=== PATIENT | female | born 1990 | race Caucasian/White ===

== ENCOUNTER 2016-12-26 16:35 | Emergency (ER) ==
[2016-12-26 16:45] VITALS: BP 129/88; TEMP 98.5; BMI 38.7
--- NOTE | 2016-12-26 17:17 | ED.PDOC ---
General ED Provider: Dr. TABATHA PIERSON JR Chief Complaint: Non-specific Complaint Stated Complaint: patient states it started with pain to left side of her face. states if she pushes on her cheek it helps the pain. patient states also has a headache. swelling noted to left side of face. states hurts left temporal area and down into teeth. [ End ]patient states left side of face and head are hurting. swelling noted. states if she bends over the pain worsens. states she did vomit x1 due to the pain earlier. states eyes also hurt when she bends over. states if she holds pressure to left side of face it feels better. states she thinks she may have a sinus infection but not drainage or congestion noted. 98.5 69 20 98 129/88 9/10. excedrin and tylenol sinus and headache and vistaril. lumpectomy left breast--benign. [ End ]. last month on the . left side of face and head hurting. [ End ] Time Seen by Physician: 17:17 Mode of Arrival: Walk-In Information Source: Patient Exam Limitations: No limitations Primary Care Provider: BETH RAY Nursing and Triage Documentation Reviewed and Agree: No Review of Systems - Review Of Systems Constitutional: Reports: No symptoms Eyes: Reports: No symptoms Ears, Nose, Mouth, Throat: Reports: Mouth pain (LEFT FACIAL PAIN) Respiratory: Reports: No symptoms Cardiac: Reports: No symptoms GI: Reports: No symptoms : Reports: No symptoms Musculoskeletal: Reports: No symptoms Skin: Reports: No symptoms Neurological: Reports: No symptoms Endocrine: Reports: No symptoms Hematologic/Lymphatic: Reports: No symptoms All Other Systems: Other Past Medical History - Past Medical History Previously Healthy: Yes Endocrine: Reports: None Cardiovascular: Reports: None Respiratory: Reports: None Hematological: Reports: None Gastrointestinal: Reports: None Genitourinary: Reports: None Neuro/Psych: Reports: Anxiety Musculoskeletal: Reports: None Cancer: Reports: None Last Menstrual Period: last month on the - Surgical History General Surgical History: Reports: Other (lumpectomy left breast--benign) - Family History Family History: Reports: Cancer (FEMALE RELATIVES WITH BREAST CANCER) - Social History Smoking Status: Current some day smoker Hx Substance Use: No Alcohol Screening: Occasionally Physical Exam - Physical Exam Appearance: Well-appearing Pain Distress: Moderate Eyes: JG, EOMI, Conjunctiva clear ENT: Ears normal, Nose normal, Oropharynx normal Neck: Supple (LEFT lad SLIGHTLY TENDER TENDER LEFT MAXILLARY SINUS) Respiratory: Airway patent, Breath sounds clear, Breath sounds equal, Respirations nonlabored Skin: Warm, Dry, Normal color Neurological: Sensation intact, Motor intact Psychiatric: Affect appropriate Critical Care Note - Critical Care Note Total Time (mins): 0 Course - Course Vital Signs: Temp Pulse Resp BP Pulse Ox 12/26/16 16:40 98.5 F 69 20 129/88 98 Departure - Departure Time of Disposition: 17:37 Disposition: HOME SELF-CARE Discharge Problem: Sinusitis, acute, maxillary Qualifiers: Recurrence: non-recurrent Qualifier Code: (J01.00) Acute maxillary sinusitis, unspecified Instructions: Sinusitis (ED) Condition: Good Pt referred to PMD for follow-up: Yes Additional Instructions: BACTRIM ANTIBIOTIC FOR INFECTION ANTIHISTAMINE EVERY DAY FOR ONE WEEK THEN NEEDED MAY ADD A DECONGESTANT- PSEUDOEPHEDRINE IS EFFECTIVE IBUPROFEN OR ALEVE FOR PAIN NOT IMPROVED WITH [id number] FOUR TIMES A DAY Prescriptions: Sulfamethoxazole/Trimethoprim [Bactrim Ds Tablet] 1 tab PO Q12HR #20 tablet Allergies/Adverse Reactions: Allergies Penicillins Allergy (Unknown, Unverified 12/26/16 16:43) Home Medications: Ambulatory Orders Sulfamethoxazole/Trimethoprim [Bactrim Ds Tablet] 1 tab PO Q12HR #20 tablet
== END 2016-12-26 17:50 | disposition home or self-care (01) ==
LOC: ED 16:35
DX: J01.00 Acute maxillary sinusitis, unspecified (principal); F17.210 Nicotine dependence, cigarettes, uncomplicated
CPT/HCPCS: 99282

== ENCOUNTER 2018-04-18 23:25 | Emergency (ER) ==
[2018-04-18 23:38] VITALS: BP 127/84; TEMP 99.7; BMI 40.3
--- NOTE | 2018-04-18 23:50 | ED.PDOC ---
General ED Provider: Dr. JENNYFER SANDHU Chief Complaint: Fall Stated Complaint: twisted injury to right foot, ever since hurting to walk and stand. Time Seen by Physician: 23:45 Mode of Arrival: Wheelchair Information Source: Patient Primary Care Provider: BETH RAY Nursing and Triage Documentation Reviewed and Agree: Yes Reviewed sepsis parameters & appropriate labs ordered?: Yes System Inflammatory Response Syndrome: Not Applicable Sepsis Protocol: For patient's 13 years and over: Temp is 96.8 and below OR 101 and greater Pulse >90 BPM Resp >20/minute Acutely Altered Mental Status Are patient's symptoms suggestive of a new infection, such as: -Pneumonia -Skin, Soft Tissue -Endocarditis -UTI -Bone, Joint Infection -Implantable Device -Acute Abdominal Infection -Wound Infection -Meningitis -Blood Stream Catheter Infection -Unknown Musculoskeletal Complaint Exam - Ankle/Foot Complaint/Exam Location of Injury: Reports: Right, Foot Mechanism of Injury: Reports: Trauma Symptoms Are: Reports: Still present Onset of Pain: Reports: Immediate Initial Severity: Moderate Current Severity: Moderate Location: Reports: Discrete Character: Reports: Aching, Throbbing Alleviating: Reports: None Aggravating: Reports: Movement, Weight bearing Able to Bear Weight: Yes Associated Signs and Symptoms: Denies: Swelling, Redness, Bruising, Fever, Weakness, Numbness, Tingling Related History: Reports: Similar episode Gout Risk Factors: Reports: None Related Surgical History: Reports: None Lower Extremity Findings: Present: Swelling Tenderness: Present: Midfoot, Metatarsals Limited Range of Motion: Present: Inversion, Eversion, Dorsiflexion Differential Diagnosis: Closed Fracture, Sprain Review of Systems - Review Of Systems Constitutional: Reports: No symptoms Eyes: Reports: No symptoms Ears, Nose, Mouth, Throat: Reports: No symptoms Respiratory: Reports: No symptoms Cardiac: Reports: No symptoms GI: Reports: No symptoms : Reports: No symptoms Musculoskeletal: Reports: Joint pain, Joint swelling Skin: Reports: No symptoms Neurological: Reports: No symptoms Endocrine: Reports: No symptoms Hematologic/Lymphatic: Reports: No symptoms All Other Systems: Reviewed and Negative Past Medical History - Past Medical History Previously Healthy: Yes Endocrine: Reports: None Cardiovascular: Reports: None Respiratory: Reports: None Hematological: Reports: None Gastrointestinal: Reports: None Genitourinary: Reports: None Neuro/Psych: Reports: Anxiety Musculoskeletal: Reports: None Cancer: Reports: None Last Menstrual Period: 05/04/18 - states "irregular" Other Pertinent Past Medical History: lumpectomy left breast--benign - Surgical History General Surgical History: Reports: Other (lumpectomy left breast--benign) - Family History Family History: Reports: Cancer (FEMALE RELATIVES WITH BREAST CANCER) - Social History Smoking Status: Current some day smoker, Light tobacco smoker Smoking Cessation Counseling Time: > 3 min - 10 min Hx Substance Use: No Alcohol Screening: Occasionally - Immunizations Tetanus Shot up to Date: Yes Physical Exam - Physical Exam Appearance: Well-nourished, Obese Pain Distress: Moderate Eyes: JG, EOMI, Conjunctiva clear ENT: Ears normal, Nose normal, Oropharynx normal Respiratory: Airway patent, Breath sounds clear, Breath sounds equal, Respirations nonlabored Cardiovascular: RRR, Pulses normal, No rub, No murmur GI/: Soft, Nontender, No masses, Bowel sounds normal, No Organomegaly Musculoskeletal: Normal strength, ROM intact, No edema, No calf tenderness Skin: Warm, Dry, Normal color Neurological: Sensation intact, Motor intact, Reflexes intact, Cranial nerves intact, Alert, Oriented Psychiatric: Affect appropriate, Mood appropriate Interpretation - Radiology Interpretation Radiology Interpretation By: ED Physician Radiology Results: Positive Critical Care Note - Critical Care Note Total Time (mins): 20 Course - Course Orders, Labs, Meds: Orders Category Date Time Status Acetaminophen [Tylenol] MEDS 04/18/18 23:44 Discontinued 500 mg PO ONCE STA FOOT, RIGHT 3 VIEWS Stat RADS 04/18/18 23:44 Taken Medications Discontinued Medications Generic Name Dose Route Start Last Admin Trade Name Freq PRN Reason Stop Dose Admin Acetaminophen 500 mg 04/18/18 23:44 04/18/18 23:54 Tylenol PO 04/18/18 23:45 500 mg ONCE STA Administration Vital Signs: Temp Pulse Resp BP Pulse Ox 04/18/18 23:31 99.7 F H 101 H 20 127/84 99 Departure - Departure Time of Disposition: 23:50 Disposition: HOME SELF-CARE Discharge Problem: Fracture, metacarpal shaft Qualifiers: Encounter type: initial encounter Metacarpal bone: fifth Fracture type: closed Fracture alignment: displaced Laterality: right Qualified Code(s): S62.326A - Displaced fracture of shaft of fifth metacarpal bone, right hand, initial encounter for closed fracture Discharge Problem: (Ruled Out): Foot sprain Instructions: Toe Fracture (ED) Condition: Stable Pt referred to PMD for follow-up: Yes IPMP verified?: No Additional Instructions: Rest Cold pack Tylenol prn F/u with PMD Prescriptions: Hydrocodone Bit/Acetaminophen [[place] 7.5-325] 1 each PO Q8H #10 tablet Allergies/Adverse Reactions: Allergies Penicillins Allergy (Unknown, Verified 04/18/18 23:37) poison negar extract Adverse Reaction (Severe, Verified 04/18/18 23:37) Swelling Home Medications: Ambulatory Orders Multivitamin [Multi-Vitamin Daily] 1 each PO DAILY 04/18/18 Hydrocodone Bit/Acetaminophen [[place] 7.5-325] 1 each PO Q8H #10 tablet 04/19/18 Disposition Discussed With: Patient
[2018-04-18] MEDS: TYLENOL PO STA (23:54)
--- NOTE | 2018-04-19 00:27 | DI ---
EXAM: Right foot three views HISTORY: Fall COMPARISON: None. FINDINGS: There is a transverse fracture involving the proximal fifth metatarsal. There is surround ing soft tissue swelling. IMPRESSION: Nondisplaced fracture proximal fifth metatarsal with surrounding soft tissue swelling
== END 2018-04-19 01:15 | disposition home or self-care (01) ==
LOC: ED 23:25
DX: S92.354A Nondisplaced fracture of fifth metatarsal bone, right foot, initial encounter for closed fracture (principal); W19.XXXA Unspecified fall, initial encounter; F17.210 Nicotine dependence, cigarettes, uncomplicated
CPT/HCPCS: 99282

== ENCOUNTER 2018-12-20 15:24 | Outpatient (CLI) | END 2018-12-20 15:25 | disposition home or self-care (01) | LOC: RHC-LAB 15:24 → FCC-LAB 15:25 | PROVIDERS: ATTEND Family Medicine | DX: R68.89 Other general symptoms and signs (principal) | CPT/HCPCS: 87502 ==